=== PATIENT | female | born 2000 | race Caucasian/White ===

== ENCOUNTER 2020-06-19 03:48 | Inpatient (IN) ==
[2020-06-19] MEDS ORDERED: *HR* FentaNYL (PF) 100 MCG/2 ML VIAL IVP PRN (03:51)
[2020-06-19] MEDS ORDERED: Famotidine 20 MG/2 ML VIAL IVP PRN (03:51)
[2020-06-19] MEDS ORDERED: Naloxone 0.4 MG/ML INJ IVP PRN ×2 (03:51→17:20)
[2020-06-19] MEDS ORDERED: Metoclopramide 10 MG/2 ML VIAL IVP PRN ×2 (03:51→21:20)
[2020-06-19] MEDS ORDERED: Lidocaine 1% 20 ML MDV INFILT PRN (03:51)
[2020-06-19] MEDS ORDERED: miSOPROStoL 25 MCG TABLET VG PRN (04:07)
[2020-06-19] MEDS ORDERED: Penicillin G Potassium 5,000,000 UNIT in 0.9 % Sodium Chloride Mini Bag 100 ML IVPB ONE (04:18)
[2020-06-19 04:22] LABS: Basophils % 0.2 %; Eosinophils # 0.2 K/mcL (0.0-0.6); Eosinophils % 1.4 %; Hematocrit 36.8 % (35.3-44.9); Hemoglobin 11.3 g/dL (11.5-15.4); Immature Granulocytes % 0.6 % (0-4); Lymphocytes # 3.8 K/mcL (0.6-4.6); Lymphocytes % 29.6 %; Mean Corpuscular HGB Conc 30.7 g/dL (31.6-35.5); Mean Corpuscular Hemoglobin 25.7 pg (28.0-33.3); Mean Corpuscular Volume 83.8 fL (83.0-100.0); Mean Platelet Volume 10.3 fL (9.4-12.4); Monocytes # 0.8 K/mcL (0.0-1.3); Monocytes % 6.6 %; Neutrophils # 7.8 K/mcL (1.6-8.9); Platelet Count 264 K/mcL (140-400); Red Blood Count 4.39 M/mcL (3.82-4.97); Red Cell Distribution Width 15.3 % (11.5-14.5); Segmented Neutrophils % 61.6 %; White Blood Count 12.7 K/mcL (4.3-11.1)
[2020-06-19 04:31] LABS: Amphetamine Screen,Urine Negative ng/mL (Cutoff=1000); Barbiturate Screen,Urine Negative ng/mL (Cutoff=200); Benzodiazepines Screen,Urine Negative ng/mL (Cutoff=200); Cannabinoid Screen,Urine Negative ng/mL (Cutoff = 50); Cocaine Screen,Urine Negative ng/mL (Cutoff= 300); Opiate Screen,Urine Negative ng/mL (Cutoff=300); Phencyclidine Screen,Urine Negative ng/mL (Cutoff=25)
[2020-06-19] MEDS ORDERED: *HR* FentaNYL (PF) 100 MCG/2 ML VIAL EP ONE (08:07)
[2020-06-19] MEDS ORDERED: Bupivacaine-MPF 0.25% 10 ML VIAL EP ONE (08:07)
[2020-06-19] MEDS ORDERED: EPHEDrine 50 MG/ML VIAL IVP PRN (08:07)
[2020-06-19] MEDS: Penicillin G Potassium 2,500,000 UNIT/105 ML UNIT IVPB SCH ×2 (08:12→12:34)
[2020-06-19] MEDS ORDERED: Epidural Premix (fent/bupiv) 110 ML EP SCH (08:15)
[2020-06-19] MEDS ORDERED: Oxytocin 20 units/ LR 1000 mL 20 UNIT/1,000 ML BAG IVC SCH ×2 (09:30→21:20)
[2020-06-19] MEDS: Ringers Solution, Lactated 1,000 ML IVC SCH ×3 (12:16→16:38)
[2020-06-19] MEDS ORDERED: *HR* FentaNYL (PF) 100 MCG/2 ML VIAL ONE (16:21)
[2020-06-19] MEDS ORDERED: Lidocaine/EPI 1:200k 2% PF 20 ML VIAL ONE (16:21)
[2020-06-19] MEDS ORDERED: *HR* Oxytocin 10 UNIT/ML VIAL IM ONE (16:22)
[2020-06-19] MEDS ORDERED: Ringers Solution, Lactated 1,000 ML ONE (16:23)
[2020-06-19] MEDS ORDERED: *HR* Morphine Sulfate/PF 10 MG/10 ML AMPUL ONE (17:14)
[2020-06-19] MEDS ORDERED: *HR* Meperidine 25 MG/ML SYRINGE IVP PRN (17:20)
[2020-06-19] MEDS ORDERED: *HR* Promethazine 25 MG/ML VIAL IVP PRN (17:20)
[2020-06-19] MEDS ORDERED: *HR* HYDROmorphone PF 0.5 MG/0.5 ML SYRINGE IVP PRN (17:20)
[2020-06-19] MEDS ORDERED: Ondansetron 4 MG/2 ML VIAL IVP PRN ×2 (17:20→21:20)
[2020-06-19] MEDS ORDERED: Acetaminophen IV 1,000 MG/100 ML INFUS..BTL ONE (17:37)
[2020-06-19] MEDS ORDERED: Rho Immune Globulin 1,500 UNIT SYRINGE IM ONE (21:20)
[2020-06-19] MEDS ORDERED: Simethicone 80 MG TAB.CHEW PO PRN (21:20)
[2020-06-19] MEDS ORDERED: *HR* OxyCODONE/APAP 5/325 TABLET PO PRN (21:20)
[2020-06-19] MEDS ORDERED: Sennosides 8.6 MG TABLET PO PRN (21:20)
[2020-06-19] MEDS: Ibuprofen 600 MG TABLET PO PRN (22:36)
[2020-06-20] MEDS: metroNIDAZOLE 500 MG TABLET PO SCH ×4 (01:14→19:39)
[2020-06-20] MEDS: cephALEXin 500 MG CAPSULE PO SCH ×4 (01:14→19:39)
[2020-06-20] MEDS: Prenatal Vit/FA 1 EACH TABLET PO SCH (08:27)
[2020-06-20 09:33] LABS: Basophils % 0.3 %; Eosinophils # 0.1 K/mcL (0.0-0.6); Eosinophils % 0.7 %; Hematocrit 29.4 % (35.3-44.9); Immature Granulocytes % 0.4 % (0-4); Lymphocytes # 2.4 K/mcL (0.6-4.6); Lymphocytes % 22.7 %; Mean Corpuscular Hemoglobin 26.5 pg (28.0-33.3); Mean Corpuscular Volume 85.7 fL (83.0-100.0); Mean Platelet Volume 10.6 fL (9.4-12.4); Monocytes # 0.7 K/mcL (0.0-1.3); Monocytes % 6.7 %; Neutrophils # 7.5 K/mcL (1.6-8.9); Platelet Count 218 K/mcL (140-400); Red Blood Count 3.43 M/mcL (3.82-4.97); Red Cell Distribution Width 15.4 % (11.5-14.5); Segmented Neutrophils % 69.2 %; White Blood Count 10.8 K/mcL (4.3-11.1)
[2020-06-20 09:34] LABS: Hemoglobin 9.1 g/dL (11.5-15.4)
[2020-06-20] MEDS: Ibuprofen 600 MG TABLET PO PRN ×2 (15:18→22:13)
[2020-06-21 08:05] VITALS: BP 132/74
[2020-06-21] MEDS: Ibuprofen 600 MG TABLET PO PRN (08:12)
[2020-06-21] MEDS: cephALEXin 500 MG CAPSULE PO SCH (08:12)
[2020-06-21] MEDS: metroNIDAZOLE 500 MG TABLET PO SCH (08:12)
[2020-06-21] MEDS: Prenatal Vit/FA 1 EACH TABLET PO SCH (08:12)
== END 2020-06-21 13:00 | disposition home or self-care (01) | DRG 540 ==
LOC: 1NENULAB 03:48 → 1NENUOBS 22:11
PROVIDERS: ADMIT Student in an Organized Health Care Education/Training Program; ATTEND Student in an Organized Health Care Education/Training Program

== ENCOUNTER 2020-08-29 23:13 | Observation (INO) ==
[2020-08-30] MEDS ORDERED: *HR* FentaNYL (PF) 100 MCG/2 ML VIAL IVP ONE (00:13)
[2020-08-30] MEDS ORDERED: Ondansetron 4 MG/2 ML VIAL IVP ONE (00:14)
[2020-08-30 00:17] LABS: Basophils % 0.3 %; Hemoglobin 10.5 g/dL (11.5-15.4); Red Cell Distribution Width 14.5 % (11.5-14.5)
[2020-08-30 00:19] LABS: Eosinophils # 0.2 K/mcL (0.0-0.6); Eosinophils % 1.6 %; Hematocrit 36.5 % (35.3-44.9); Immature Granulocytes % 0.5 % (0-4); Lymphocytes # 3.8 K/mcL (0.6-4.6); Lymphocytes % 39.1 %; Mean Corpuscular HGB Conc 28.8 g/dL (31.6-35.5); Mean Corpuscular Hemoglobin 23.6 pg (28.0-33.3); Mean Corpuscular Volume 82.2 fL (83.0-100.0); Mean Platelet Volume 10.2 fL (9.4-12.4); Monocytes # 0.5 K/mcL (0.0-1.3); Monocytes % 5.3 %; Neutrophils # 5.2 K/mcL (1.6-8.9); Platelet Count 369 K/mcL (140-400); Red Blood Count 4.44 M/mcL (3.82-4.97); Segmented Neutrophils % 53.2 %; White Blood Count 9.8 K/mcL (4.3-11.1)
[2020-08-30 00:24] LABS: Bacteria,Urine Few per hpf (None-Few); Bilirubin,Urine Negative (Negative); Blood,Urine Negative (Negative); Clarity,Urine Turbid (Clear); Color,Urine Light-Yellow (Yellow); Glucose,Urine (UA) Normal (Normal); Ketones,Urine Negative (Negative); Leukocyte Esterase,Urine Small (Negative); Mucus,Urine Few per lpf (None-Few); Nitrite,Urine Negative (Negative); Protein,Urine Negative (Neg-Trace); RBC,Urine 0-3 per hpf (0-3); Specific Gravity,Urine 1.012 (1.010-1.025); Squamous Epithelial Cell,Urine Moderate per hpf (None-Few); Urobilinogen,Urine Normal (Normal)
[2020-08-30 00:37] LABS: Alanine Aminotransferase 75 Units/L (7-52); Albumin 3.9 g/dL (3.5-5.7); Albumin/Globulin Ratio 1.1 (1.1-2.2); Alkaline Phosphatase 146 Units/L (34-104); Aspartate Amino Transferase 60 Units/L (13-39); BUN/Creatinine Ratio 18 (6-26); Bilirubin,Direct 0.1 mg/dL (0.0-0.2); Bilirubin,Indirect 0.2 mg/dL (0.0-1.0); Bilirubin,Total 0.3 mg/dL (0.3-1.0); Blood Urea Nitrogen 13 mg/dL (6-20); Carbon Dioxide 28 mEq/L (23-29); Chloride 103 mEq/L (98-107); Globulin 3.7 g/dL (2.4-3.5); Glucose 102 mg/dL (70-105); Lipase 16 Units/L (11-82); Osmolality,Calculated 282 (280-300); Potassium 4.2 mEq/L (3.5-5.1); Sodium 136 mEq/L (136-145); Total Protein 7.6 g/dL (6.4-8.9); eGFR For African Americans > 60 (> 60); eGFR For Non-African Americans > 60 (> 60)
[2020-08-30 00:39] LABS: Hypochromasia Present (Not Present); Microcytosis Present (Not Present); Platelet Estimate Normal (Normal); Reactive Lymphocytes Present (Not Present)
[2020-08-30] MEDS ORDERED: *HR* HYDROmorphone (PF) 1 MG/ML SYRINGE IVP ONE (01:36)
[2020-08-30] MEDS ORDERED: Morphine Sulfate Oral CONC 10 MG/0.5 ML ORAL.SYG SL PRN (02:02)
[2020-08-30] MEDS ORDERED: 0.9 % Sodium Chloride 1,000 ML IVC SCH (02:15)
[2020-08-30] MEDS: Acetaminophen IV 1,000 MG/100 ML INFUS..BTL IVPB SCH ×3 (05:06→12:13)
[2020-08-30] MEDS: Ketorolac 30 MG/ML VIAL IVP SCH ×3 (05:06→14:53)
[2020-08-30] MEDS ORDERED: *HR* Meperidine 25 MG/ML SYRINGE IVP PRN (10:08)
[2020-08-30] MEDS ORDERED: Promethazine 6.25 MG in Water for inj. (sterile) 20 ML IVPB PRN (10:08)
[2020-08-30] MEDS ORDERED: Ondansetron 4 MG/2 ML VIAL IVP PRN (10:08)
[2020-08-30] MEDS ORDERED: *HR* FentaNYL (PF) 100 MCG/2 ML VIAL IVP PRN (10:08)
[2020-08-30] MEDS ORDERED: Lidocaine -MPF 4% 5 ML AMPUL ONE (11:44)
[2020-08-30] MEDS ORDERED: Lidocaine -MPF 2% 2 ML VIAL ONE (11:44)
[2020-08-30] MEDS ORDERED: Dexamethasone 4 MG/ML VIAL ONE (11:44)
[2020-08-30] MEDS ORDERED: *HR* Rocuronium Bromide 50 MG/5 ML VIAL ONE (11:44)
[2020-08-30] MEDS ORDERED: *HR* FentaNYL (PF) 100 MCG/2 ML VIAL ONE (11:44)
[2020-08-30] MEDS ORDERED: Ondansetron 4 MG/2 ML VIAL ONE (11:44)
[2020-08-30] MEDS ORDERED: *HR* Midazolam HCl 2 MG/2 ML VIAL ONE (11:44)
[2020-08-30] MEDS ORDERED: *HR* Propofol 200 MG/20 ML VIAL IVP ONE (11:44)
[2020-08-30] MEDS ORDERED: CefOXitin 2,000 MG VIAL ONE (12:46)
[2020-08-30] MEDS ORDERED: *HR* PHENYLEPHRINE 1,000 MCG/10 ML SYRINGE IVP ONE (13:10)
[2020-08-30] MEDS ORDERED: Neostigmine Methylsulfate 3 MG/3 ML SYRINGE ONE (13:26)
[2020-08-30 17:00] VITALS: BP 129/94
== END 2020-08-30 18:43 | disposition home or self-care (01) ==
LOC: 3ANU 23:13 → EMEROOARM 23:13 → 3ANU 08-30 04:35
PROVIDERS: ADMIT Surgery; ATTEND Surgery

== ENCOUNTER 2021-11-16 14:58 | Observation (INO) ==
[2021-11-16 12:47] LABS: Influenza A PCR Negative (Negative); Influenza B PCR Negative (Negative); Resp. Syncytial Virus PCR Negative (Negative)
[2021-11-16 12:48] LABS: SARS-CoV-2 by PCR (In House) Negative (Negative)
[2021-11-16 13:05] LABS: Amorphous Sediment,Urine Few per hpf (None-Few); Bacteria,Urine Few per hpf (None-Few); Bilirubin,Urine Negative (Negative); Blood,Urine Negative (Negative); Clarity,Urine Turbid (Clear); Color,Urine Yellow (Yellow); Glucose,Urine (UA) Normal (Normal); Ketones,Urine Negative (Negative); Leukocyte Esterase,Urine Moderate (Negative); Mucus,Urine Few per lpf (None-Few); Nitrite,Urine Negative (Negative); PH,Urine 7.5 pH Units (5.0-8.0); Protein,Urine 30 mg/dL (Neg-Trace); Specific Gravity,Urine 1.024 (1.010-1.025); Squamous Epithelial Cell,Urine Moderate per hpf (None-Few); Urobilinogen,Urine Normal (Normal)
[2021-11-16 13:10] LABS: Basophils % 0.4 %; Eosinophils # 0.1 K/mcL (0.0-0.6); Eosinophils % 0.8 %; Hematocrit 35.3 % (35.3-44.9); Hemoglobin 10.4 g/dL (11.5-15.4); Immature Granulocytes % 0.5 % (0-4); Lymphocytes # 2.4 K/mcL (0.6-4.6); Lymphocytes % 23.8 %; Mean Corpuscular HGB Conc 29.5 g/dL (31.6-35.5); Mean Corpuscular Volume 81.3 fL (83.0-100.0); Mean Platelet Volume 10.1 fL (9.4-12.4); Monocytes # 0.6 K/mcL (0.0-1.3); Monocytes % 5.8 %; Neutrophils # 6.9 K/mcL (1.6-8.9); Platelet Count 271 K/mcL (140-400); Red Blood Count 4.34 M/mcL (3.82-4.97); Red Cell Distribution Width 16.1 % (11.5-14.5); Segmented Neutrophils % 68.7 %; White Blood Count 10.1 K/mcL (4.3-11.1)
[2021-11-16 13:59] LABS: Alanine Aminotransferase 7 Units/L (7-52); Albumin 3.4 g/dL (3.5-5.7); Alkaline Phosphatase 131 Units/L (34-104); Aspartate Amino Transferase 8 Units/L (13-39); Bilirubin,Total 0.2 mg/dL (0.3-1.0); Blood Urea Nitrogen 7 mg/dL (6-20); Carbon Dioxide 25 mEq/L (23-29); Chloride 103 mEq/L (98-107); Globulin 3.5 g/dL (2.4-3.5); Glucose 75 mg/dL (70-105); Osmolality,Calculated 281 (280-300); Potassium 3.8 mEq/L (3.5-5.1); Sodium 137 mEq/L (136-145); Total Protein 6.9 g/dL (6.4-8.9)
[2021-11-16 14:13] LABS: BUN/Creatinine Ratio 12 (6-26); eGFR For African Americans > 60 (> 60); eGFR For Non-African Americans > 60 (> 60)
[~2021-11-16 14:58] MED LIST: Ringers Solution, Lactated 1,000 ML IVC SCH; Ringers Solution, Lactated 1,000 ML ONE; Ringers Solution, Lactated 500 ML IVC ONE
== END 2021-11-16 15:05 | disposition home or self-care (01) ==
LOC: 1NENULAB
PROVIDERS: ADMIT Registered Nurse; ATTEND Registered Nurse

== ENCOUNTER 2021-12-20 04:54 | Inpatient (IN) ==
[2021-12-20] MEDS ORDERED: Famotidine 20 MG/2 ML VIAL IVP PRN (04:58)
[2021-12-20] MEDS ORDERED: Metoclopramide 10 MG/2 ML VIAL IVP PRN ×2 (04:58→12:13)
[2021-12-20] MEDS ORDERED: CeFAZolin Syr 3,000MG/30 ML 3,000 MG/30 ML SYRINGE IVPB ONE (04:58)
[2021-12-20] MEDS ORDERED: Ringers Solution, Lactated 1,000 ML IVC ONE (04:58)
[2021-12-20] MEDS ORDERED: Naloxone 0.4 MG/ML INJ IVP PRN (04:58)
[2021-12-20] MEDS ORDERED: Oxytocin 20 units/ LR 1000 mL 20 UNIT/1,000 ML BAG IVC ONE (04:58)
[2021-12-20] MEDS ORDERED: Ringers Solution, Lactated 1,000 ML IVC SCH ×2 (05:00→12:13)
[2021-12-20 06:23] LABS: Basophils % 0.3 %; Eosinophils # 0.1 K/mcL (0.0-0.6); Eosinophils % 1.3 %; Hematocrit 37.3 % (35.3-44.9); Hemoglobin 11.3 g/dL (11.5-15.4); Immature Granulocytes % 0.3 % (0-4); Lymphocytes # 3.2 K/mcL (0.6-4.6); Lymphocytes % 36.1 %; Mean Corpuscular HGB Conc 30.3 g/dL (31.6-35.5); Mean Corpuscular Hemoglobin 24.2 pg (28.0-33.3); Mean Corpuscular Volume 79.9 fL (83.0-100.0); Mean Platelet Volume 11.2 fL (9.4-12.4); Monocytes # 0.7 K/mcL (0.0-1.3); Monocytes % 7.8 %; Neutrophils # 4.8 K/mcL (1.6-8.9); Platelet Count 255 K/mcL (140-400); Red Blood Count 4.67 M/mcL (3.82-4.97); Red Cell Distribution Width 16.8 % (11.5-14.5); Segmented Neutrophils % 54.2 %; White Blood Count 8.8 K/mcL (4.3-11.1)
[2021-12-20 06:26] LABS: Influenza A PCR Negative (Negative); Influenza B PCR Negative (Negative); Resp. Syncytial Virus PCR Negative (Negative)
[2021-12-20 06:28] LABS: SARS-CoV-2 by PCR (In House) Negative (Negative)
[2021-12-20] MEDS ORDERED: *HR* Morphine Sulfate/PF 10 MG/10 ML AMPUL ONE (07:13)
[2021-12-20] MEDS ORDERED: EPHEDrine 50 MG/ML VIAL ONE (07:13)
[2021-12-20] MEDS ORDERED: *HR* FentaNYL (PF) 100 MCG/2 ML VIAL ONE (07:13)
[2021-12-20] MEDS ORDERED: *HR* Phenylephrine 10 MG/ML VIAL ONE (07:15)
[2021-12-20] MEDS ORDERED: *HR* Midazolam HCl 2 MG/2 ML VIAL ONE (07:15)
[2021-12-20] MEDS ORDERED: Ondansetron 4 MG/2 ML VIAL ONE (07:15)
[2021-12-20] MEDS ORDERED: Ringers Solution, Lactated 1,000 ML ONE (07:21)
[2021-12-20] MEDS ORDERED: *HR* Oxytocin 10 UNIT/ML VIAL ONE (08:05)
[2021-12-20] MEDS ORDERED: Ketorolac 30 MG/ML VIAL ONE (08:14)
[2021-12-20] MEDS ORDERED: Promethazine 6.25 MG in Water for inj. (sterile) 20 ML IVPB PRN (08:36)
[2021-12-20] MEDS ORDERED: *HR* Labetalol 20 MG/4 ML SYRINGE IVP PRN (08:36)
[2021-12-20] MEDS ORDERED: Acetaminophen IV 1,000 MG/100 ML BAG IVPB PRN (08:36)
[2021-12-20] MEDS ORDERED: Ondansetron 4 MG/2 ML VIAL IVP PRN ×2 (08:36→12:13)
[2021-12-20] MEDS ORDERED: *HR* HYDROmorphone PF 0.5 MG/0.5 ML SYRINGE IVP PRN (08:36)
[2021-12-20] MEDS ORDERED: *HR* Nalbuphine 10 MG/ML AMPUL IV PRN ×2 (08:39→12:13)
[2021-12-20] MEDS ORDERED: NON-FORMULARY MEDICATION 1 EACH EACH (Prenat 115/Iron Fum/Folic/Dss [Prenatal 19 Tablet] 1 PO SCH (12:13)
[2021-12-20] MEDS ORDERED: Simethicone 80 MG TAB.CHEW PO PRN (12:13)
[2021-12-20] MEDS ORDERED: *HR* Enoxaparin 60 MG/0.6 ML SYRINGE SQ SCH (12:13)
[2021-12-20] MEDS ORDERED: Rho Immune Globulin 1,500 UNIT SYRINGE IM ONE (12:13)
[2021-12-20] MEDS ORDERED: Oxytocin 20 units/ LR 1000 mL 20 UNIT/1,000 ML BAG IVC SCH ×2 (12:13)
[2021-12-20 12:57] LABS: Amphetamine Screen,Urine Negative ng/mL (Cutoff=1000); Barbiturate Screen,Urine Negative ng/mL (Cutoff=200); Benzodiazepines Screen,Urine Negative ng/mL (Cutoff=200); Cannabinoid Screen,Urine Negative ng/mL (Cutoff = 50); Cocaine Screen,Urine Negative ng/mL (Cutoff= 300); Opiate Screen,Urine Negative ng/mL (Cutoff=300); Phencyclidine Screen,Urine Negative ng/mL (Cutoff=25)
[2021-12-20] MEDS: Acetaminophen 325 MG TABLET PO SCH ×2 (15:44→21:36)
[2021-12-20] MEDS: Ibuprofen 600 MG TABLET PO SCH ×2 (21:35→21:39)
[2021-12-20] MEDS: *HR* Enoxaparin 60 MG/0.6 ML SYRINGE SQ SCH (21:36)
[2021-12-20] MEDS: Prenatal Vit/FA 1 EACH TABLET PO SCH (21:39)
[2021-12-21] MEDS: Acetaminophen 325 MG TABLET PO SCH ×2 (04:21→17:24)
[2021-12-21] MEDS: Ibuprofen 600 MG TABLET PO SCH ×2 (04:21→17:24)
[2021-12-21 04:46] LABS: Basophils % 0.3 %; Eosinophils % 0.4 %; Hematocrit 25.6 % (35.3-44.9); Immature Granulocytes % 0.4 % (0-4); Lymphocytes # 2.9 K/mcL (0.6-4.6); Lymphocytes % 29.3 %; Mean Corpuscular HGB Conc 29.3 g/dL (31.6-35.5); Mean Corpuscular Hemoglobin 23.4 pg (28.0-33.3); Mean Corpuscular Volume 79.8 fL (83.0-100.0); Monocytes # 0.8 K/mcL (0.0-1.3); Monocytes % 8.3 %; Platelet Count 191 K/mcL (140-400); Red Blood Count 3.21 M/mcL (3.82-4.97); Red Cell Distribution Width 16.8 % (11.5-14.5); Segmented Neutrophils % 61.3 %; White Blood Count 9.8 K/mcL (4.3-11.1)
[2021-12-21 04:47] LABS: Hemoglobin 7.5 g/dL (11.5-15.4)
[2021-12-21] MEDS: Prenatal Vit/FA 1 EACH TABLET PO SCH (08:04)
[2021-12-21] MEDS: *HR* Enoxaparin 60 MG/0.6 ML SYRINGE SQ SCH ×2 (08:04→19:35)
[2021-12-21] MEDS: *HR* OxyCODONE Immed Rel 5 MG TABLET PO PRN ×2 (17:24→22:31)
[2021-12-22] MEDS: Acetaminophen 325 MG TABLET PO SCH ×2 (00:20→10:09)
[2021-12-22] MEDS: Ibuprofen 600 MG TABLET PO SCH ×2 (00:20→06:24)
[2021-12-22] MEDS: *HR* OxyCODONE Immed Rel 5 MG TABLET PO PRN (06:24)
[2021-12-22 06:58] VITALS: BP 116/80; PULSE 91; TEMP 98.1; O2SAT 99
[2021-12-22] MEDS: *HR* Enoxaparin 60 MG/0.6 ML SYRINGE SQ SCH (10:08)
[2021-12-22] MEDS: Prenatal Vit/FA 1 EACH TABLET PO SCH (10:09)
[2021-12-22 12:03] LABS: Basophils % 0.3 %; Red Cell Distribution Width 16.9 % (11.5-14.5)
[2021-12-22 12:05] LABS: Eosinophils # 0.1 K/mcL (0.0-0.6); Eosinophils % 1.6 %; Hematocrit 26.4 % (35.3-44.9); Hemoglobin 7.9 g/dL (11.5-15.4); Immature Granulocytes % 0.8 % (0-4); Lymphocytes # 2.9 K/mcL (0.6-4.6); Lymphocytes % 32.4 %; Mean Corpuscular HGB Conc 29.9 g/dL (31.6-35.5); Mean Corpuscular Hemoglobin 24.3 pg (28.0-33.3); Mean Corpuscular Volume 81.2 fL (83.0-100.0); Mean Platelet Volume 11.1 fL (9.4-12.4); Monocytes # 0.6 K/mcL (0.0-1.3); Monocytes % 7.1 %; Neutrophils # 5.1 K/mcL (1.6-8.9); Platelet Count 226 K/mcL (140-400); Red Blood Count 3.25 M/mcL (3.82-4.97); Segmented Neutrophils % 57.8 %; White Blood Count 8.9 K/mcL (4.3-11.1)
[2021-12-22 13:38] LABS: Anisocytosis 1+ (Not Present); Hypochromasia Present (Not Present); Platelet Estimate Normal (Normal)
== END 2021-12-22 14:21 | disposition home or self-care (01) | DRG 540 ==
LOC: 1NENULAB 04:54 → 1NENUOBS 12:11
PROVIDERS: ADMIT Student in an Organized Health Care Education/Training Program; ATTEND Student in an Organized Health Care Education/Training Program